=== PATIENT | male | born 1980 | race Caucasian/White ===

== ENCOUNTER 2019-09-08 00:22 | Day surgery (SDC) | payer BC, SELFPAY ==
[2019-09-07 11:53] VITALS: BMI 28.5
[2019-09-08 09:58] VITALS: PULSE 100; RESP 18; TEMP 36.6; O2SAT 97; BMI 27.1
--- NOTE | 2019-09-08 10:11 | P.PNAN_ITS ---
Anes - Initial Pre Proc Eval Procedure: Operation Date: 09/08/19 11:15 Proposed Procedures p Esophagogastroduodenoscopy & Colonoscopy - Zelalem Jaime MD Date/Time: 09/08/19 10:11 Surgeon: Zelalem Jaime MD Pre Op Diagnosis: GERD, change in bowel habits Patient Data Age: 39 Gender: M Height: 5 ft 10 in Weight: 86 kg Last Vital Signs Temp 36.6 C 09/08/19 09:58 Pulse 100 09/08/19 09:58 Resp 18 09/08/19 09:58 Pulse Ox 97 09/08/19 09:58 Allergies Allergy/AdvReac Type Severity Reaction Status Date / Time No Known Allergies Allergy Unverified 09/08/19 09:55 Home Medications Medication Instructions Recorded Confirmed Type omeprazole 40 mg capsule,delayed 40 mg PO DAILY #90 cap 07/29/19 09/07/19 Rx release Patient hx anesthesia problems: none Family hx anesthesia problems: none PMFSH Surgical History Surgical History Hx of hernia repair Family History Family History Mother Cancer Father Anxiety Social History Social History Smoking status: Never smoker Alcohol intake: current Drinks per week: 15 Substance use: never Additional occupation/education comments: [employer] Gender identity (if verbalized by the patient): Male Anes - Eval Final PreProcedure Day of Procedure 09/08/19 10:11 Patient weight: overweight Heart: regular rate and rhythm Lungs: clear to auscultation Airway: Mallampati scale class II Neurological: alert and oriented Last oral intake: >/= 8 hours ASA classification: II Emergent: no Anesthetic plan: proceed Anesthesia type and monitoring: general GIVS and standard monitoring Informed Consent: The patient's anesthetic plan and its attendant risks and benefits were discussed with the patient/family/POA. Questions were solicited and answers provided to the satisfaction of the patient/family/POA.
[2019-09-08] MEDS: LACTATED RINGERS 1,000 ML 150 ML IV CONT ×2 (10:19→12:32)
--- NOTE | 2019-09-08 12:00 | PM.HPGS ---
History of Present Illness History of Present Illness Consent: Risks, benefits, and alternatives have been discussed and questions answered. Patient agrees to proceed with procedure. Chief complaint: GERD, change in bowel habits Narrative: Ryan Nieves is a 39 year old male bloating, non-cardiac chest pain, change of bowel habits Review of Systems Constitutional: Constitutional: Denies headache(s) and Denies weakness Eyes: Eyes: Denies blurry vision ENT: Reports Normal hearing present, Denies headache(s) and Denies neck pain Cardiovascular: Cardiovascular: Denies chest pain and Denies dyspnea Respiratory: Respiratory: Denies dyspnea Gastrointestinal: Gastrointestinal: Reports no additional gastrointestinal complaints Genitourinary: Genitourinary: Denies dysuria Musculoskeletal: Musculoskeletal: Denies neck pain Integumentary/Breasts: Skin/Breast: Denies dry skin Neurologic: Reports Normal hearing present, Denies headache(s) and Denies weakness Psychiatric: Psychiatric: Denies anxiety Endocrine: Endocrine: Denies change in body appearance Hematologic/Lymphatic: Hematologic/Lymphatic: Denies easy bleeding Allergic/Immunologic: Allergic/Immunologic: Denies urticaria PMFSH Surgical History Surgical History Hx of hernia repair Family History Family History Mother Cancer Father Anxiety Social History Social History Smoking status: Never smoker Alcohol intake: current Drinks per week: 15 Substance use: never Additional occupation/education comments: [employer] Gender identity (if verbalized by the patient): Male Meds Home Medications and Allergies Home Medications Medication Instructions Recorded Confirmed Type omeprazole 40 mg capsule,delayed 40 mg PO DAILY #90 cap 07/29/19 09/07/19 Rx release Allergies Allergy/AdvReac Type Severity Reaction Status Date / Time No Known Allergies Allergy Unverified 09/08/19 09:55 Vital Signs Vital Signs - 24 hr 09/08/19 09:58 Temperature 97.9 F Pulse Rate 100 Respiratory Rate 18 Pulse Oximetry 97 Exam Const: General: comfortable and no acute distress HENMT: General nose exam: Normal nares present Eyes: General: appearance normal, both eyes and all related structures Neck: Neck: no JVD Resp: Auscultation: clear to auscultation bilaterally Cardio: Rate: regular rate Rhythm: regular rhythm GI: Inspection: non-distended GI Palp: Yes Soft to palpation Skin: General skin exam: normal color Neuro: General: gait normal Speech: normal speech Extrem: General: normal to inspection Psych: Mental Status: mental status grossly normal Assessment and Plan Assessment and plan (1) Bowel habit changes: Code(s): R19.4 - Change in bowel habit Status: Acute Assessment and Plan: will proceed with colonoscopy (2) Bloating: Code(s): R14.0 - Abdominal distension (gaseous) Status: Acute Assessment and Plan: EGD, consider biopsies
[2019-09-08 12:38] VITALS: BP 113/74; PULSE 86; RESP 22; O2SAT 97
[2019-09-08 12:48] VITALS: BP 111/73; PULSE 80; RESP 24; O2SAT 97
[2019-09-08 12:58] VITALS: BP 123/75; PULSE 77; RESP 19; O2SAT 98
== END 2019-09-08 13:01 | disposition home or self-care (01) ==
PROVIDERS: PCP Internal Medicine; Visit Provider Internal Medicine Gastroenterology
PROC: 0DJ08ZZ Inspection of Upper Intestinal Tract, Via Natural or Artificial Opening Endoscopic (ICD-10-PCS; CPT 43235; principal; 2019-09-08 11:15)
DX: R19.4 Change in bowel habit (principal); K64.8 Other hemorrhoids; R14.0 Abdominal distension (gaseous); R07.89 Other chest pain; K21.9 Gastro-esophageal reflux disease without esophagitis
CPT/HCPCS: 45378; 43239; 88305; J2704; J7120